=== PATIENT | male | born 2000 | race Caucasian/White ===

== ENCOUNTER 2024-04-03 15:09 | Emergency (ER) | payer OTHER, SELFPAY ==
[2024-04-03 15:18] VITALS: BP 132/76
--- NOTE | 2024-04-03 16:08 | ED.MUSCINJ ---
HPI-Injury
General
Chief Complaint: Fall
Source: patient
Exam Limitations: none
Time Seen by Provider: 04/03/24 16:05
Nursing documentation reviewed up to this point in time: agreed with
History of Present Illness-Injury
Is this injury a work related problem?: Yes
Is pt an associate of [facility]?: No
Initial Injury comments:
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 He was able to walk around and finished his shift but with increasing pain in the
tailbone area. He denies numbness or tingling or weakness in his legs, denies loss of control of bowel or bladder.
He states his ankle is completely better and has no pain in the ankle.
Past History
Past History
ED Past Medical History: None and Psychiatric
ED Past Surgical History: None
Social History
Tobacco: Smoker
Alcohol: Occasional
Personal: Single
Living: other (Lives with his girlfriend)
Employment: Employed (Road phlebotomy lab assistant)
Review of Systems
Review of Systems
Allergies reviewed?: Yes
All Other Systems: ROS reviewed and negative except as documented in HPI and ROS
ABD/GI: Denies abdominal pain
: Denies incontinence or difficulty voiding
Musculoskeletal: Reports other (pain in tailbone); Denies neck pain or back pain
Skin: Reports no symptoms
Neurological: Reports no symptoms
Phy Exam
Physical Exam
Physical Exam:
GENERAL: No acute distress. A&Ox3.
CONSTITUTIONAL: Afebrile.
RESPIRATORY: Regular respirations, nonlabored, lungs clear.
CARDIOVASCULAR: Regular rate and rhythm, no murmurs, no rubs.
GI: Soft, nontender, normal BS
MUSCULOSKELETAL: No spinal bony tenderness, immediately tender over sacrum/coccyx area. Full ROM bilateral LE's. Moves slowly due to tailbone pain but with ease. Well perfused.
SKIN: Warm, dry, pink
PSYCH: Normal mood and affect. Well kept, interactive and appropriate
NEUROLOGIC: Awake, alert and oriented. No focal neurological deficits
Injury Course
Orders/Labs/Results
Orders:
Orders
04/03/24 16:07
Sacrum/Coccyx 2 View CR [CR Sacrum/coccyx Min 2 View] Urgent
Comment:
Reason For Exam: pain, fall direct impact tailbone to street
04/03/24 16:08
Ibuprofen [Motrin] 600 mg PO NOW STA
MDM/Problems Addressed
Differential Diagnosis Includes:
Contusion versus fracture sacrum/coccyx
MDM/Problems Addressed:
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 He was able to walk around and finished his shift but with increasing pain in
the tailbone area. He denies numbness or tingling or weakness in his legs, denies loss of control of bowel or bladder. He states his ankle is completely better and has no pain in the ankle.
6:00 PM
X-ray sacrum and coccyx: No acute injury noted
Patient has been out of bed and ambulating well. He states he does not need a note to be off work.
He is asking to leave and if we could call him if the radiology read is any different from my official read. This is reasonable as he is ambulating well.
6:30 p.m.
IMPRESSION:
Faint cortical buckling along the ventral margin of S4, consistent with subtle fracture.
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 Partial lumbarization of S1. Chronic S1 spondylolysis with minor grade 1 spondylolisthesis.
Pt notified of subtle fracture.
*Critical Care Note
Total Time (30-74mins, 75-104mins- exclusive of procedures): Not Applicable
ED Attending Note
-
Portions of this chart may have been created with voice recognition software.� Occasional wrong word or��sound alike� substitutions may have occurred due to the inherent limitations of voice recognition software.
Discharge Plan
Departure
Patient Disposition: Home (Routine Discharge)
Date of Disposition: 04/03/24
Time of Disposition: 18:01
Patient with high blood pressure during this ER visit?: Yes
Condition: Good
Discharge Problem:
Coccyx contusion
Instructions: Coccyx Injury ED
Prescriptions:
No Action
No Current Medications
0
Referrals:
Your, Worker's Comp provider [Other] - As needed
NONE,* [Family Provider] -
Activity Restrictions/Additional Instructions:
As we discussed, cool compress to the area 20 minutes off and on is much as you can in the next few days.
Ibuprofen 600 mg, with food, every 6 hours as needed for pain.
See your Worker's Comp. doctor for evaluation if you are not able to work due to this injury or if you are not 100% better within the next 3 to 4 weeks.
Interventions
Interventions:
*Risk Screen - Suicide Last Done: 04/03/24 16:03
*General Assessment Last Done: 04/03/24 16:03
*Neglect/Abuse Screening Last Done: 04/03/24 16:03
*Nursing Disposition Last Done: 04/03/24 19:18
ED-Musculoskeletal Assessment Last Done: 04/03/24 16:03
ED- Neurological Assessment Last Done: 04/03/24 16:03
ED-Skin Assessment Last Done: 04/03/24 16:03
Discharge Date and Time
Discharge Date/Time: 04/03/24 19:20
Print Language: J[place]
[2024-04-03] MEDS: MOTRIN 600 MG PO (16:23)
[2024-04-03 17:31] VITALS: BP 140/88
[2024-04-03 19:18] VITALS: BP 140/88
== END 2024-04-03 19:20 | disposition home or self-care (01) ==
LOC: EMR 15:09
PROVIDERS: EMERGENCY PHYSICIAN Emergency Medicine
DX: S30.0XXA Contusion of lower back and pelvis, initial encounter (principal); W18.39XA Other fall on same level, initial encounter; Y93.89 Activity, other specified; Y92.410 Unspecified street and highway as the place of occurrence of the external cause; Y99.0 Civilian activity done for income or pay; M53.3 Sacrococcygeal disorders, not elsewhere classified
CPT/HCPCS: 99283; 72220